=== PATIENT | male | born 1955 | race Caucasian/White ===

== ENCOUNTER 2021-12-14 09:52 | Outpatient (RCR) | payer MEDICARE, BC, SELFPAY ==
[2021-12-15 16:37] LABS: Kappa Qnt Free Light Chains 18.15 mg/L (3.30-19.40); Lambda Qnt Free Light Chains 16.43 mg/L (5.71-26.30)
--- NOTE | 2022-01-04 15:16 | ONC.NURNOTE ---
Labs reviewed by Dr. Sultana, results called to pt and pt verbalized understanding.
--- NOTE | 2022-05-09 13:53 | ONC.NURNOTE ---
Addendum entered by Scarlett Centeno RN 05/09/22 13:56: Pt returned call; he will continue care at [facility]. Original Note: Called pt to review changes in [facility] program and Dr. Sultana's transition to [facility], returning Spring 2022. LMOM; f/u due 09/2022.
== END 2022-06-12 23:59 | disposition home or self-care (01) ==
LOC: CCIC 09:52
PROVIDERS: PCP Family Medicine; Visit Provider Internal Medicine Hematology & Oncology
DX: D47.2 Monoclonal gammopathy (principal)
CPT/HCPCS: 36415; 83520

== ENCOUNTER 2022-03-23 11:26 | Outpatient (CLI) | payer MEDICARE, BC, SELFPAY ==
[2022-03-25 11:29] LABS: Prolactin 7.6 ng/mL (2.1-17.7)
== END 2022-03-23 11:27 | disposition home or self-care (01) ==
PROVIDERS: PCP Family Medicine; Visit Provider Family Medicine
DX: E23.0 Hypopituitarism (principal)
CPT/HCPCS: 84146

== ENCOUNTER 2022-05-18 10:57 | Outpatient (CLI) | payer MEDICARE, BC, SELFPAY ==
--- NOTE | 2022-05-18 11:15 | CRLHL7_ITS ---
For Patients: As a result of the Century Cures Act, medical imaging exams and procedure reports are released immediately into your electronic medical record. You may view this report before your referring provider. If you have questions, please contact your health care provider. Technique: Double-contrast esophagram performed after the uneventful administration of effervescent crystals and thick barium followed by thin barium. Fluoroscopy time 2 minutes 13 seconds. Indication: ACHALASIA Comparison: 09/15/2021 Findings: Status post POEM procedure. Improved appearance of the distal esophagus. Delayed clearance of barium tablet through the mid and distal esophagus although the tablet eventually clears with multiple sips of water, changes in position and belching. No mechanical obstruction. No extravasation. No acute inflammation. Impression: Interval treatment of achalasia status post POEM procedure. There is decreased transit of barium tablet in the midesophagus and distal esophagus. The tablet eventually passes through the GE junction after approximately 5-6 minutes. Dictated by Aiden Campos MD @ 05/18/2022 12:23:24 PM (Electronically Signed)
== END 2022-05-18 10:58 | disposition home or self-care (01) ==
LOC: RAD 10:58
PROVIDERS: PCP Family Medicine; Visit Provider Internal Medicine Gastroenterology
DX: K22.0 Achalasia of cardia (principal)
CPT/HCPCS: 74221

== ENCOUNTER 2022-06-08 13:15 | Outpatient (CLI) | payer MEDICARE, BC, SELFPAY | END 2022-06-08 13:16 | disposition home or self-care (01) | PROVIDERS: PCP Family Medicine; Referring Provider Family Medicine; Visit Provider Registered Nurse | DX: R30.0 Dysuria (principal); N39.0 Urinary tract infection, site not specified | CPT/HCPCS: 87086 ==

== ENCOUNTER 2022-06-22 10:52 | Outpatient (CLI) | payer MEDICARE, BC, SELFPAY | END 2022-06-22 10:53 | disposition home or self-care (01) | LOC: NFLDREF 06-24 05:32 | PROVIDERS: PCP Family Medicine; Referring Provider Family Medicine; Visit Provider Family Medicine | DX: R30.0 Dysuria (principal); Z87.448 Personal history of other diseases of urinary system; E55.9 Vitamin D deficiency, unspecified; D64.9 Anemia, unspecified | CPT/HCPCS: 87086 ==

== ENCOUNTER 2022-12-13 08:00 | Outpatient (RCR) | payer MEDICARE, BC, SELFPAY ==
[2022-08-24 11:15] LABS: Chloride* 103 mmol/L (96-114); Potassium* 4.3 mmol/L (3.6-5.1); Sodium* 142 mmol/L (135-149)
[2022-08-24 11:16] LABS: Glucose* 106 mg/dL (60-115)
[2022-08-24 11:17] LABS: Basophils Percent Auto 0.6 % (0.0-3.0); Hemoglobin* 12.4 gm/dL (13.5-17.5); Lymphocytes Percent Auto 35.9 % (20-44); Mean Corpuscular HGB Conc 34 gm/dL (32-36); Mean Corpuscular Hemoglobin 32 pg (26-34); Mean Corpuscular Volume 95 fL (80-100); Monocytes Percent Auto 12.4 % (0.0-11.0); Neutrophils Percent Auto 49.1 % (42.0-72.0); Platelet Count* 283 K/uL (140-440); RDW Coefficient of Variation % 13.1 % (11.5-15.5); Red Blood Count 3.91 m/uL (4.30-5.90); White Blood Count* 3.48 K/uL (4.50-11.00)
[2022-08-24 11:18] LABS: Slide Review Reflex No
[2022-08-24 11:42] LABS: Blood Urea Nitrogen* 15 mg/dL (7-30); Carbon Dioxide* 25 mmol/L (20-32); Estimated Glomerular Filt Rate 83 ml/min
[2022-08-25 01:59] LABS: Alanine Aminotransferase* 25 U/L (4-50); Albumin* 4.6 g/dL (3.3-5.0); Alkaline Phosphatase* 77 U/L (40-150); Aspartate Amino Transferase* 42 U/L (12-35); Bilirubin Total* 0.4 mg/dL (0.1-1.5); Calcium* 9.3 mg/dL (8.4-10.6); Lactate Dehydrogenase* 261 U/L (120-246); Total Protein* 7.8 g/dL (6.0-8.3)
[2022-08-25 18:44] LABS: Kappa Qnt Free Light Chains 28.41 mg/L (3.30-19.40); Kappa-Lambda Qt FLC W/ Ratio 1.63 (0.26-1.65); Lambda Qnt Free Light Chains 17.42 mg/L (5.71-26.30)
[2022-09-03 13:50] LABS: Free Urinary Kappa Excret/Day 16.35 mg/d; Free Urinary Lambda Excr/Day 1.24 mg/d; Free Urine Kappa Light Chains 14.86 mg/L (0.00-32.90); Free Urine LAmbda Light Chains 1.13 mg/L (0.00-3.79); Hours Collected 24 hr; Total Volume 1100 mL
[2022-12-15 05:43] LABS: Kappa Qnt Free Light Chains 26.28 mg/L (3.30-19.40); Kappa-Lambda Qt FLC W/ Ratio 1.74 (0.26-1.65); Lambda Qnt Free Light Chains 15.14 mg/L (5.71-26.30)
--- NOTE | 2022-12-18 16:03 | ONC.NURNOTE ---
Labs reviewed by Dr. Sultana, pt to return in 3 mo for labs and follow up. Pt aware.
== END 2023-02-20 23:59 | disposition home or self-care (01) ==
LOC: CCIC 08:00
PROVIDERS: PCP Family Medicine; Referring Provider Family Medicine; Visit Provider Internal Medicine Hematology & Oncology
DX: D47.2 Monoclonal gammopathy (principal)
CPT/HCPCS: 36415; 80053; 82232; 83520; 83615; 84156; 85025; 86334; 86335; 99212; 99214

== ENCOUNTER 2023-03-28 13:00 | Outpatient (RCR) | payer MEDICARE, BC, SELFPAY ==
[2023-03-14 10:47] LABS: Basophils Percent Auto 0.8 % (0.0-3.0); Eosinophils Percent Auto 3.7 % (0.0-7.0); Hematocrit 39.1 % (37.0-53.0); Immature Granulocytes Pct Auto 0.3 %; Lymphocytes Percent Auto 38.1 % (20-44); Mean Corpuscular HGB Conc 33 gm/dL (32-36); Mean Corpuscular Hemoglobin 31 pg (26-34); Mean Corpuscular Volume 93 fL (80-100); Monocytes Percent Auto 10.3 % (0.0-11.0); Neutrophils Percent Auto 46.8 % (42.0-72.0); Platelet Count* 295 K/uL (140-440); RDW Coefficient of Variation % 12.5 % (11.5-15.5); White Blood Count* 3.78 K/uL (4.50-11.00)
[2023-03-14 10:53] LABS: Slide Review Reflex No
[2023-03-14 11:07] LABS: Albumin* 4.3 g/dL (3.3-5.0)
[2023-03-14 11:08] LABS: Chloride* 106 mmol/L (96-114); Potassium* 3.8 mmol/L (3.6-5.1); Sodium* 140 mmol/L (135-149)
[2023-03-14 11:10] LABS: Alkaline Phosphatase* 73 U/L (40-150); Anion Gap 5 mEq/L (7-15); Aspartate Amino Transferase* 26 U/L (12-35); Bilirubin Total* 0.4 mg/dL (0.1-1.5); Blood Urea Nitrogen* 11 mg/dL (7-30); Carbon Dioxide* 29 mmol/L (20-32); Creatinine* 0.9 mg/dL (0.5-1.5); Estimated Glomerular Filt Rate 94 ml/min; Total Protein* 7.4 g/dL (6.0-8.3)
[2023-03-14 11:11] LABS: Alanine Aminotransferase* 17 U/L (4-50); Calcium* 9.1 mg/dL (8.4-10.6); Glucose* 94 mg/dL (60-115); Lactate Dehydrogenase* 185 U/L (120-246)
[2023-03-16 17:16] LABS: Beta-2-Microglob Serum/Plasma 1.8 mg/L (<=3.0)
[2023-03-17 01:18] LABS: Alpha 1 Globulin 0.23 g/dL (0.19-0.46); Alpha 2 Globulin 0.56 g/dL (0.48-1.05); Immunofixation IFE Done; Immunoglobulin A 204 mg/dL (68-408); Immunoglobulin G 1108 mg/dL (768-1632); Immunoglobulin M 126 mg/dL (35-263); Kappa Qnt Free Light Chains 26.28 mg/L (3.30-19.40); Kappa/Lambda Light Chain Ratio 1.64 (0.26-1.65); Lambda Qnt Free Light Chains 16.07 mg/L (5.71-26.30); Total Protein, Serum 6.7 g/dL (6.3-8.2)
== END 2023-09-10 23:59 | disposition home or self-care (01) ==
LOC: CCIC 13:00
PROVIDERS: PCP Family Medicine; Referring Provider Family Medicine; Visit Provider Internal Medicine Hematology & Oncology
DX: D47.2 Monoclonal gammopathy (principal); D72.819 Decreased white blood cell count, unspecified; R13.10 Dysphagia, unspecified
CPT/HCPCS: 36415; 80053; 82232; 82784; 83520; 83615; 84155; 84165; 85025; 86334; 99212; 99214

== ENCOUNTER 2023-05-04 08:43 | Outpatient (CLI) | payer MEDICARE, BC, SELFPAY | END 2023-05-04 08:44 | disposition home or self-care (01) | PROVIDERS: PCP Family Medicine; Visit Provider Family Medicine | DX: Z00.00 Encounter for general adult medical examination without abnormal findings (principal); D64.9 Anemia, unspecified; E78.5 Hyperlipidemia, unspecified; E55.9 Vitamin D deficiency, unspecified; D47.2 Monoclonal gammopathy; E23.0 Hypopituitarism; Z12.5 Encounter for screening for malignant neoplasm of prostate; E78.00 Pure hypercholesterolemia, unspecified; G47.30 Sleep apnea, unspecified | CPT/HCPCS: 80053; 80061; 82728; 83540; 84146; 84403; 84443; G0103 ==

== ENCOUNTER 2023-11-06 08:32 | Outpatient (CLI) | payer MEDICARE, BC, SELFPAY | END 2023-11-06 08:33 | disposition home or self-care (01) | PROVIDERS: PCP Family Medicine; Visit Provider Family Medicine | DX: Z00.00 Encounter for general adult medical examination without abnormal findings (principal); D35.2 Benign neoplasm of pituitary gland; E23.0 Hypopituitarism; E55.9 Vitamin D deficiency, unspecified; E78.5 Hyperlipidemia, unspecified; D64.9 Anemia, unspecified; Z86.39 Personal history of other endocrine, nutritional and metabolic disease | CPT/HCPCS: 80053; 82306; 82784; 83520; 83615; 84146; 84155; 84165; 86334 ==

== ENCOUNTER 2023-12-03 11:02 | Outpatient (RCR) | payer MEDICARE, BC, SELFPAY ==
--- NOTE | 2024-05-07 08:26 | ONC.NURNOTE ---
Late entry: Patient called on 05/06/24 requesting to make his 6 month follow up appt. Patient scheduled for Mid June with Dr. Sultana. RN did not make lab appt. Attempted to call patient to schedule labs a few days prior to his Follow up appt. RN LVM for patient to call back to get lab appt scheduled.
== END 2024-05-31 23:59 | disposition home or self-care (01) ==
LOC: CCIC 11:02
PROVIDERS: PCP Family Medicine; Referring Provider Family Medicine; Visit Provider Internal Medicine Hematology & Oncology
DX: D47.2 Monoclonal gammopathy (principal); D64.9 Anemia, unspecified; R13.10 Dysphagia, unspecified
CPT/HCPCS: 99214; G0463

== ENCOUNTER 2023-12-11 16:47 | Outpatient (CLI) | payer MEDICARE, BC, SELFPAY | END 2023-12-11 16:48 | disposition home or self-care (01) | PROVIDERS: PCP Family Medicine; Referring Provider Family Medicine; Visit Provider Nurse Practitioner Family | DX: N30.00 Acute cystitis without hematuria (principal) | CPT/HCPCS: 87086 ==

== ENCOUNTER 2023-12-17 10:32 | Outpatient (CLI) | payer MEDICARE, BC, SELFPAY | END 2023-12-17 10:33 | disposition home or self-care (01) | PROVIDERS: PCP Family Medicine; Visit Provider Family Medicine | DX: R33.9 Retention of urine, unspecified (principal); Z12.5 Encounter for screening for malignant neoplasm of prostate | CPT/HCPCS: 80048; 87086; G0103 ==

== ENCOUNTER 2024-03-02 16:00 | Emergency (ER) | payer MEDICARE, BC, SELFPAY ==
[2024-03-02] VITALS (12 sets, daily range): BP systolic 144–155; BP diastolic 80–97; PULSE 71–80; RESP 16–18; TEMP 36.6; O2SAT 96–100; BMI 25.8
--- NOTE | 2024-03-02 16:20 | CRLHL7_ITS ---
For Patients: As a result of the Century Cures Act, medical imaging exams and procedure reports are released immediately into your electronic medical record. You may view this report before your referring provider. If you have questions, please contact your health care provider. Indication Trauma. TECHNIQUE: CT brain: Noncontrast CT images of the brain. CT facial bones: Noncontrast CT images of the facial bones. COMPARISON: MRI brain 02/28/2019. FINDINGS: CT brain: Mild diffuse cerebral volume loss. No mass effect or midline shift. Hollins-white differentiation is maintained. No acute intracranial hemorrhage or pathologic extra-axial fluid collection. Calvarium is intact. CT facial bones: Mildly comminuted, mildly depressed fracture of the right zygomatic arch. Nondisplaced fractures of the right maxillary sinus anterior and posterolateral ulloa. Nondisplaced right orbital floor fracture. Blood products severely opacify the right maxillary sinus. Soft tissue swelling, stranding, and subcutaneous emphysema at the right malar eminence. The mastoid air cells are clear. Globes are symmetric. No retrobulbar hemorrhage. IMPRESSION: 1. No acute intracranial hemorrhage or mass effect. 2. Mildly comminuted, depressed fracture of the right zygomatic arch. Nondisplaced fractures of the right maxillary sinus anterior and posterolateral ulloa. Nondisplaced right orbital floor fracture. Blood products severely opacify the right maxillary sinus. Please note that all CT scans at this facility use dose modulation, iterative reconstruction, and/or weight-based dosing when appropriate to reduce radiation dose to as low as reasonably achievable. Dictated by Yon Child MD @ 03/02/2024 5:04:39 PM (Electronically Signed)
--- NOTE | 2024-03-02 16:20 | CRLHL7_ITS ---
For Patients: As a result of the Century Cures Act, medical imaging exams and procedure reports are released immediately into your electronic medical record. You may view this report before your referring provider. If you have questions, please contact your health care provider. INDICATION: Trauma. TECHNIQUE: Right forearm radiographs, 2 views. COMPARISON: None. FINDINGS: Contour irregularity to proximal radial shaft with postsurgical changes, possibly sequela of remote trauma. Postsurgical changes of the proximal carpal row. No acute fractures. The joint spaces are preserved. No significant joint effusion. No significant soft tissue edema. IMPRESSION: No acute fractures. Dictated by Lucian Patterson MD @ 03/02/2024 5:34:59 PM (Electronically Signed)
--- NOTE | 2024-03-02 16:20 | CRLHL7_ITS ---
For Patients: As a result of the Century Cures Act, medical imaging exams and procedure reports are released immediately into your electronic medical record. You may view this report before your referring provider. If you have questions, please contact your health care provider. INDICATION: Trauma. TECHNIQUE: Left forearm radiographs, 2 views. COMPARISON: None. FINDINGS: No acute fractures or dislocation. Severe degeneration of the radiocarpal joint with abnormal degenerative subchondral sclerosis of the scaphoid. No definite cortical defect the. The scapholunate interval is preserved. No significant soft tissue edema or radiopaque foreign bodies. IMPRESSION: No acute fractures or dislocation. Dictated by Lucian Patterson MD @ 03/02/2024 5:39:41 PM (Electronically Signed)
--- NOTE | 2024-03-02 16:20 | CRLHL7_ITS ---
For Patients: As a result of the Century Cures Act, medical imaging exams and procedure reports are released immediately into your electronic medical record. You may view this report before your referring provider. If you have questions, please contact your health care provider. INDICATION: Trauma. TECHNIQUE: Right shoulder radiographs, 3 views. COMPARISON: None. FINDINGS: No acute fractures or dislocation. The glenoid appears intact. Joint spaces are preserved. The visualized lung field appears clear. No significant soft tissue edema or radiopaque foreign bodies. IMPRESSION: No acute fractures or dislocation. Dictated by Lucian Patterson MD @ 03/02/2024 5:36:39 PM (Electronically Signed)
--- NOTE | 2024-03-02 16:21 | CRLHL7_ITS ---
For Patients: As a result of the Century Cures Act, medical imaging exams and procedure reports are released immediately into your electronic medical record. You may view this report before your referring provider. If you have questions, please contact your health care provider. INDICATION: Trauma. TECHNIQUE: Noncontrast CT images of the cervical spine. COMPARISON: None. FINDINGS: Straightened cervical lordosis. Mild rightward cervical curvature. No acute fracture or traumatic subluxation. Grade 1 anterolisthesis of C4 on C5, C5 on C6, and C7 on T1. Advanced multilevel disc height loss. Multilevel posterior disc osteophyte complexes contribute to low-grade spinal canal narrowing. Multilevel uncinate spurring and facet arthropathy contributing to advanced neural foraminal stenosis on the left at C3-4, bilaterally at C4-5, right C5-6, and right C6-7. No concerning opacities in the lung apices. IMPRESSION: 1. No acute fracture or traumatic subluxation. 2. Multilevel cervical spondylosis. Please note that all CT scans at this facility use dose modulation, iterative reconstruction, and/or weight-based dosing when appropriate to reduce radiation dose to as low as reasonably achievable. Dictated by Yon Child MD @ 03/02/2024 5:09:25 PM (Electronically Signed)
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
[2024-03-02 18:05] LABS: Basophils Absolute Auto 0.01 K/uL (0.00-0.30); Basophils Percent Auto 0.1 % (0.0-3.0); Eosinophils Absolute Auto 0.02 K/uL (0.00-0.50); Eosinophils Percent Auto 0.2 % (0.0-7.0); Hematocrit 39.1 % (37.0-53.0); Hemoglobin* 13.2 gm/dL (13.5-17.5); Immature Granulocytes Abs Auto 0.01 K/uL (0.00-0.30); Immature Granulocytes Pct Auto 0.1 %; Lymphocytes Percent Auto 13.1 % (20-44); Mean Corpuscular HGB Conc 34 gm/dL (32-36); Mean Corpuscular Hemoglobin 31 pg (26-34); Mean Corpuscular Volume 92 fL (80-100); Monocytes Percent Auto 7.3 % (0.0-11.0); Neutrophils Percent Auto 79.2 % (42.0-72.0); Platelet Count* 231 K/uL (140-440); RDW Coefficient of Variation % 12.9 % (11.5-15.5); Red Blood Count 4.27 m/uL (4.30-5.90); White Blood Count* 8.61 K/uL (4.50-11.00)
[2024-03-02 18:10] LABS: Slide Review Reflex No
[2024-03-02 18:18] LABS: Albumin* 4.8 g/dL (3.3-5.0); Chloride* 102 mmol/L (96-114)
[2024-03-02 18:19] LABS: Sodium* 135 mmol/L (135-149)
[2024-03-02 18:21] LABS: Alkaline Phosphatase* 67 U/L (40-150); Anion Gap 9 mEq/L (7-15); Aspartate Amino Transferase* 35 U/L (12-35); Bilirubin Total* 0.4 mg/dL (0.1-1.5); Carbon Dioxide* 24 mmol/L (20-32); Creatinine* 0.9 mg/dL (0.5-1.5); Est. Creatinine Clearance* 71.68; Estimated Glomerular Filt Rate 94 ml/min; Total Protein* 7.9 g/dL (6.0-8.3)
[2024-03-02 18:22] LABS: Alanine Aminotransferase* 23 U/L (4-50); Blood Urea Nitrogen* 24 mg/dL (7-30); Calcium* 9.4 mg/dL (8.4-10.6); Glucose* 85 mg/dL (60-115)
[2024-03-02 18:23] LABS: INR 0.89 (0.91-1.10); Partial Thromboplastin Time* 31 Seconds (23-33); Prothrombin Time 12.6 Seconds
[2024-03-02 18:37] LABS: Troponin I* < 0.01 ng/mL (0.01-0.04)
== END 2024-03-02 18:12 | disposition short-term general hospital (02) ==
PROVIDERS: Emergency Provider Student in an Organized Health Care Education/Training Program; PCP Family Medicine
DX: S02.40EA Zygomatic fracture, right side, initial encounter for closed fracture (principal); S02.40CA Maxillary fracture, right side, initial encounter for closed fracture; S02.31XA Fracture of orbital floor, right side, initial encounter for closed fracture; W22.8XXA Striking against or struck by other objects, initial encounter
CPT/HCPCS: 36415; 70450; 70486; 72125; 73030; 73090; 80053; 84484; 85025; 85610; 85730; 94761; 99285; 99291

== ENCOUNTER 2024-05-08 09:31 | Outpatient (CLI) | payer MEDICARE, BC, SELFPAY | END 2024-05-08 09:32 | disposition home or self-care (01) | LOC: LKVREF 09:32 | PROVIDERS: PCP Family Medicine; Visit Provider Family Medicine | DX: E55.9 Vitamin D deficiency, unspecified (principal); E78.5 Hyperlipidemia, unspecified; E23.0 Hypopituitarism; D47.2 Monoclonal gammopathy; R30.0 Dysuria | CPT/HCPCS: 80053; 80061; 82607; 82652; 82784; 83520; 84155; 84165; 86334 ==

== ENCOUNTER 2024-12-02 08:15 | Outpatient (RCR) | payer MEDICARE, BC, SELFPAY ==
[2024-12-02 08:27] LABS: Hematocrit 38.4 % (37.0-53.0); Hemoglobin* 13.0 gm/dL (13.5-17.5); Immature Granulocytes Abs Auto 0.00 K/uL (0.00-0.30); Immature Granulocytes Pct Auto 0.0 %; Mean Corpuscular HGB Conc 34 gm/dL (32-36); Mean Corpuscular Hemoglobin 32 pg (26-34); Mean Corpuscular Volume 93 fL (80-100); RDW Coefficient of Variation % 12.6 % (11.5-15.5); Red Blood Count 4.11 m/uL (4.30-5.90); White Blood Count* 4.38 K/uL (4.50-11.00)
[2024-12-02 08:29] LABS: Lymphocytes Absolute Auto 1.80 K/uL (0.90-2.90); Slide Review Reflex No
[2024-12-02 08:39] LABS: Albumin* 4.4 g/dL (3.3-5.0); Chloride* 104 mmol/L (96-114); Sodium* 138 mmol/L (135-149)
[2024-12-02 08:40] LABS: Potassium* 4.3 mmol/L (3.6-5.1)
[2024-12-02 08:42] LABS: Alanine Aminotransferase* 23 U/L (4-50); Alkaline Phosphatase* 76 U/L (40-150); Anion Gap 7 mEq/L (7-15); Aspartate Amino Transferase* 35 U/L (12-35); Bilirubin Total* 0.3 mg/dL (0.1-1.5); Blood Urea Nitrogen* 17 mg/dL (7-30); Carbon Dioxide* 27 mmol/L (20-32); Creatinine* 1.0 mg/dL (0.5-1.5); Est. Creatinine Clearance* 68.40; Estimated Glomerular Filt Rate 82 ml/min; Total Protein* 7.7 g/dL (6.0-8.3)
[2024-12-02 08:43] LABS: Calcium* 9.5 mg/dL (8.4-10.6); Glucose* 100 mg/dL (60-115)
[2024-12-02 08:55] VITALS: BP 125/50; RESP 20; TEMP 36.9; O2SAT 92
[2024-12-08 14:38] LABS: Albumin 4.15 g/dL (3.75-5.01); Immunoglobulin A 199 mg/dL (68-408); Immunoglobulin G 1115 mg/dL (768-1632); Immunoglobulin M 128 mg/dL (35-263)
== END 2024-12-15 23:59 | disposition home or self-care (01) ==
LOC: CCIC 08:15
PROVIDERS: PCP Family Medicine; Referring Provider Family Medicine; Visit Provider Internal Medicine Hematology & Oncology
DX: D47.2 Monoclonal gammopathy (principal); D64.9 Anemia, unspecified
CPT/HCPCS: 36415; 80053; 82784; 83520; 84155; 84165; 85025; 86334; 99213; 99214; G0463